=== PATIENT | female | born 1980 | race African-American/Black ===

== ENCOUNTER 2016-11-20 14:04 | Emergency (ER) | payer OTHER ==
--- NOTE | ~2016-11-20 | EKG ---
PATIENT: CHUNG JORDAN UNIT #: [id number] Ventricular Rate: 108 BPM Atrial Rate: 108 BPM P-R Interval: 136 ms QRS Duration: 78 ms Q-T Interval: 368 ms QTC Calculation(Bezet): 493 ms P [place]: 45 degrees Calculated R [place]: 2 degrees Calculated T [place]: 143 degrees Diagnosis Line: Sinus tachycardia Diagnosis Line: T wave abnormality, consider lateral ischemia Diagnosis Line: Abnormal ECG Diagnosis Line: No previous ECGs available Diagnosis Line: Confirmed by VIVIAN CARRASCO MD ([id number]) on Diagnosis Line: 11/22/2016 9:21:38 AM INTERPRETING MD: DANILO LOPEZ
--- NOTE | ~2016-11-20 | CR63 ---
[facility] A Service of [facility] RADIOLOGY TEXT RESULTS PATIENT: CHUNG JORDAN LOCATION: SED : 76 UNIT #: [id number] AGE: [address]: Jaclyn Abreu MD SEX: F ORDER DR: [id number] [address] [address] [id number] E MR#: [id number] Acc #: [id number] NAME: CHUNG JORDAN : 1980 SEX: F STUDY DATE/TIME: 11/20/2016 14:28 UNIT: SED ROOM: STUDY DESCRIPTION: CR Chest 2 View Attending Physician: Jaclyn Abreu M.D. Ordering Physician: Jaclyn Abreu M.D. Primary Care Physician: [facility] MEDICAL IMAGING REPORT This report is preliminary unless electronic signature is present. EXAM 2 views chest 11/20/2016 HISTORY Back pain. Hypertension. Chronic back and neck pain, head back and eye pain, elevated blood pressure 217/154, right upper back pain, out of blood pressure meds times 8 days. TECHNIQUE PA and lateral radiographs of the chest are presented. COMPARISON 01/26/2016 FINDINGS Stable cardiac enlargement. The lungs are well inflated. As on prior study, the pulmonary vasculature is prominent suggesting vascular congestion. No stephanie pulmonary edema. No indication of pneumonia, pleural effusion or pneumothorax. No suspicious nodule. Calcified granuloma, right upper lobe. Visualized bony structures are unremarkable. Dictated by... Ross Valentine M.D. THIS IS AN ELECTRONICALLY VERIFIED REPORT Ross Valentine M.D. at 11/21/2016 9:31 PM SABRA/mahsa TD: 11/20/2016 17:19 JOB #: [id number] [facility] A Service [facility] RADIOLOGY TEXT RESULTS PATIENT: CHUNG JORDAN LOCATION: SED : 76 UNIT #: [id number] AGE: [address]: Jaclyn Abreu MD SEX: F ORDER DR: MEDICAL IMAGING REPORT Page 1 of 1
--- NOTE | ~2016-11-20 | CT71 ---
[facility] A Service [facility] RADIOLOGY TEXT RESULTS PATIENT: CHUNG JORDAN LOCATION: SED : [birth year] UNIT #: [id number] AGE: [address]: Jaclyn Abreu MD SEX: F ORDER DR: [id number] [address] [address] [id number] E MR#: [id number] Acc #: [id number] NAME: CHUNG JORDAN : 1980 SEX: F STUDY DATE/TIME: 11/20/2016 14:57 UNIT: SED ROOM: STUDY DESCRIPTION: CT Head Wo Contrast Attending Physician: Jaclyn Abreu M.D. Ordering Physician: Jaclyn Abreu M.D. Primary Care Physician: [facility] MEDICAL IMAGING REPORT This report is preliminary unless electronic signature is present. EXAM Head CT no contrast 11/20/2016 HISTORY Head pain and eye pain for 8 days. COMPARISON STUDIES Head CT 07/13/2010 PROCEDURE Routine unenhanced head CT. This CT exam was performed with one or more of the following radiation dose reduction techniques: automatic exposure control, adjustment of mA and/or kV according to patient size, and iterative reconstruction. FINDINGS There is no intracranial hemorrhage or mass. There is no hydrocephalus or extraaxial fluid collection. Brain parenchymal density is normal. The extracranial soft tissues are normal and the skull base and calvarium are normal. IMPRESSION Normal negative unenhanced head CT. Dictated by... Bradley Car M.D. THIS IS AN ELECTRONICALLY VERIFIED REPORT Bradley Car M.D. at 11/21/2016 3:53 PM OSMAN/jf [facility] A Service [facility] RADIOLOGY TEXT RESULTS PATIENT: CHUNG JORDAN LOCATION: SED : 76 UNIT #: [id number] AGE: [address]: Jaclyn Abreu MD SEX: F ORDER DR: TD: 11/20/2016 17:22 JOB #: [id number] MEDICAL IMAGING REPORT Page 1 of 1
[~2016-11-20 14:04] MED LIST: AZITHROMYCIN250 MG PO; BACTRIM DS TABL1 TA1 PO; BENTYL PO; FLAGYL PO; FLEXERIL PO; FLEXERIL10 MG PO; HYDROCHLOROTHIA25 MG PO; HYDROCODON-ACE1 EAC9 PO; KETOPROFEN PO; LISINOPRIL20 MG PO; LORTAB 5/500 TA1 TA1 PO; PHENERGAN25 M1 PO; ROBITUSSIN A-C S5 ML PO; ZOFRAN PO
[2016-11-20 14:46] LABS: BASOPHIL# 0.1 X10e3 (0-0.3); BASOPHIL% 0.9 % (0-2.5); EOSINOPHIL# 0.1 X10e3 (0-0.7); EOSINOPHIL% 1.2 % (0.0-7.0); HEMOGLOBIN 15.5 gm/dL (12.0-16.0); LYMPHOCYTE# 2.7 X10e3 (1.0-3.5); LYMPHOCYTE% 34.3 % (17.0-45.0); MEAN CELL VOLUME 83.6 FL (83-96); MEAN CORPUSCULAR HEMOGLOBIN 27.6 PG (28-34); MEAN CORPUSCULAR HGB CONC 33.1 g/dL (30-36); MEAN PLATELET VOLUME 9.6 FL (6.5-11.5); MONOCYTE# 0.4 X10e3 (0-1.0); MONOCYTE% 5.5 % (3.0-12.0); NEUTROPHIL# 4.6 X10e3 (1.5-7.1); NEUTROPHIL% 58.1 % (40-75); PLATELET COUNT 219 X10e3 (140-420); RED BLOOD COUNT 5.62 X10e (3.90-5.30); RED CELL DISTRIBUTION WIDTH 14.1 % (11.0-15.5)
[2016-11-20 14:47] LABS: DIFF IND NO
[2016-11-20 15:08] LABS: CALCIUM SERUM 9.2 mg/dL (8.4-10.2); CREATININE SERUM 0.4 mg/dL (0.6-1.4); GLOM FILT RATE Estimated 153.2 mL/min (>60); POTASSIUM 3.6 mmol/L (3.5-5.1)
[2016-11-20 15:10] LABS: POC - TROPONIN <0.05 ng/mL (<=0.05)
[2016-11-20 16:39] LABS: POC - CKMB 1.3 ng/mL (0.0-7.9); POC - TROPONIN <0.05 ng/mL (<=0.05)
== END 2016-11-20 16:40 | disposition home or self-care (01) ==
LOC: SED 14:04
PROVIDERS: Student in an Organized Health Care Education/Training Program
DX: I10 Essential (primary) hypertension (principal); R51 Headache; E11.9 Type 2 diabetes mellitus without complications; Z90.710 Acquired absence of both cervix and uterus
CPT/HCPCS: 36415; 70450; 71020; 80048; 82553; 84484; 85025; 93005; 99284